=== PATIENT | male | born 1975 ===

== ENCOUNTER 2022-02-01 21:42 | Emergency (ER) | payer OTHER ==
[2022-02-01 23:37] LABS: Absolute Lymphocytes (CBC) 0.8 K/uL (0.7-4.9); Hematocrit 41.5 % (39.6-49.0); Lymphocytes % 8.2 % (15.3-44.8); MPV 9.3 fL (7.6-11.3); RBC Red Blood Cell Count 5.03 M/uL (4.33-5.43)
[2022-02-01 23:50] LABS: Albumin 4.2 g/dL (3.4-5.0); Bilirubin Total 0.5 mg/dL (0.2-1.0); Potassium 3.6 mmol/L (3.5-5.1); Protein, Total 7.5 g/dL (6.4-8.2)
[2022-02-01] MEDS ORDERED: KETOROLAC 30 MG/ML INJ ONE (23:55)
[2022-02-01] MEDS ORDERED: CEFTRIAXONE 1000 MG/VIAL ONE (23:55)
[2022-02-01] MEDS ORDERED: NA CHLORIDE 0.9% 3,000 ML ONE (23:55)
[2022-02-01] MEDS ORDERED: TAMSULOSIN 0.4 MG SR CAP ONE (23:55)
[2022-02-01] MEDS ORDERED: ONDANSETRON 4 MG/2 ML VIAL ONE (23:55)
[2022-02-01] MEDS ORDERED: MORPHINE 4 MG/ML SYR ONE (23:55)
--- NOTE | 2022-02-02 01:17 | ER ---
Nurse's Notes [facility] Name: Amrik Healy Age: 46 yrs Sex: Male : 1975 Arrival Date: 02/01/2022 Time: 21:47 Bed 16 Private MD: Diagnosis: Hydronephrosis with renal and ureteral calculous obstruction-4 mm left proximal ureter Presentation: 02/01 22:46 Chief complaint: Patient states: C/O left lower back pain, Vomiting since 8:30 pm. ll3 Coronavirus screen: Vaccine status: Patient reports receiving the 2nd dose of the covid vaccine. vomiting. Ebola Screen: No symptoms or risks identified at this time. Initial Sepsis Screen: Does the patient meet any 2 criteria? No. Patient's initial sepsis screen is negative. Does the patient have a suspected source of infection? No. Patient's initial sepsis screen is negative. Risk Assessment: Do you want to hurt yourself or someone else? Patient reports no desire to harm self or others. Onset of symptoms was February 01, 2022 at 20:30. 22:46 Method Of Arrival: Ambulatory ll3 22:46 Acuity: JIMMY 3 ll3 Triage Assessment: 22:48 General: Appears uncomfortable, Behavior is calm, cooperative. Pain: Complains of pain ll3 in left low back Pain currently is 10 out of 10 on a pain scale. Pain began 4 hours ago. Is continuous. Neuro: Level of Consciousness is awake, alert, obeys commands, Oriented to person, place, time, situation. Cardiovascular: Patient's skin is warm and dry. Respiratory: Respiratory effort is even, unlabored, Respiratory pattern is regular, symmetrical. Derm: Skin is pink, warm \T\ dry. Historical: - Allergies: 22:48 No Known Allergies; ll3 - Immunization history:: Client reports receiving the 2nd dose of the Covid vaccine. - Social history:: Smoking status: Patient denies any tobacco usage or history of. - Family history:: not pertinent. Screenin/06 01:36 Abuse screen: Denies threats or abuse. Denies injuries from another. Nutritional kd3 screening: No deficits noted. Tuberculosis screening: No symptoms or risk factors identified. Fall Risk Vital Signs: 02/01 22:46 BP 145 / 93; Pulse 84; Resp 16; Temp 97.6(TE); Pulse Ox 96% on R/A; Weight 87.54 kg ll3 (R); Height 5 ft. 9 in. (175.26 cm) (R); Pain 08/08; 02/02 01:36 BP 132 / 82; Pulse 75; Resp 17; Pulse Ox 95% on R/A; kd3 02/01 22:46 Body Mass Index 28.50 (87.54 kg, 175.26 cm) ll3 ED Course: 02/01 21:47 Patient arrived in ED. kz 22:48 Triage completed. ll3 22:48 Arm band placed on. ll3 23:02 Hernando Do MD is Attending Physician. loreta 23:17 Aby Berry RN is Primary Nurse. kd3 23:21 Inserted saline lock: 20 gauge in left antecubital area, using aseptic technique. Blood ds4 collected. 02/02 00:42 CT Stone Protocol In Process Unspecified. EDMS 01:16 Jose L Ross MD is Referral Physician. loreta 01:37 Patient has correct armband on for positive identification. Bed in low position. Call kd3 light in reach. Side rails up X2. 01:37 No provider procedures requiring assistance completed. IV discontinued, intact, kd3 bleeding controlled, No redness/swelling at site. Pressure dressing applied. Administered Medications: 00:09 Drug: morphine 4 mg Route: IVP; Site: left antecubital; kd3 01:38 Follow up: Response: No adverse reaction kd3 00:09 Drug: Flomax (tamsulosin) 0.4 mg Route: PO; kd3 01:38 Follow up: Response: No adverse reaction kd3 00:09 Drug: Rocephin (cefTRIAXone) 1 grams Route: IV; Rate: per protocol; Site: left kd3 antecubital; 01:37 Follow up: Response: No adverse reaction; IV Status: Completed infusion kd3 00:09 Drug: NS 0.9% 1000 ml Route: IV; Rate: 1 bolus; Site: left antecubital; kd3 01:37 Follow up: IV Status: Completed infusion kd3 00:10 Drug: Zofran (Ondansetron) 4 mg Route: IVP; Site: left antecubital; kd3 01:38 Follow up: Response: No adverse reaction kd3 00:10 Drug: NS 0.9% 1000 ml Route: IV; Rate: 1 bolus; Site: left antecubital; kd3 01:38 Follow up: IV Status: Completed infusion kd3 00:10 Drug: TORadol (ketorolac) 30 mg Route: IVP; Site: left antecubital; kd3 01:38 Follow up: Response: No adverse reaction kd3 01:17 Drug: NS 0.9% 1000 ml Route: IV; Rate: 1 bolus; Site: left antecubital; kd3 01:38 Follow up: IV Status: Completed infusion kd3 Outcome: 01:16 Discharge ordered by MD. kan 01:37 Discharged to home ambulatory. kd3 01:37 Condition: stable 01:37 Discharge instructions given to patient, Instructed on discharge instructions, follow up and referral plans. medication usage, Demonstrated understanding of instructions, follow-up care, medications, Prescriptions given X 4. 01:38 Patient left the ED. kd3 Signatures: Dispatcher [employer] EDHernando Hong MD MD cha Swanson, Donovan ds4 Eris Canales RN RN 3 Aby Berry RN RN kd3 Jeni Yang
--- NOTE | 2022-02-02 01:17 | EDPHYS ---
Physician Documentation [facility] Name: Amrik Healy Age: 46 yrs Sex: Male : 1975 Arrival Date: 02/01/2022 Time: 21:47 Bed 16 Private MD: ED Physician Hernando Do HPI: 02/01 23:07 This 46 yrs old Male presents to ER via Ambulatory with complaints of Low loreta Back Pain - Left side. 23:07 The patient presents with pain that is acute, with no known mechanism of injury. The loreta symptoms are located in the left low back and left mid back. Location: left low back and left mid back. The problem was sustained from unknown cause. Onset: The symptoms/episode began/occurred just prior to arrival. Modifying factors: The patient symptoms are alleviated by nothing, the patient symptoms are aggravated by nothing. Associated signs and symptoms: The patient has no apparent associated signs or symptoms. Severity of symptoms: At their worst the symptoms were mild, in the emergency department the symptoms are unchanged. The patient has not experienced similar symptoms in the past. Historical: - Allergies: 22:48 No Known Allergies; ll3 - Immunization history:: Client reports receiving the 2nd dose of the Covid vaccine. - Social history:: Smoking status: Patient denies any tobacco usage or history of. - Family history:: not pertinent. ROS: 23:07 Constitutional: Negative for fever, chills, and weight loss, Eyes: Negative for injury, loreta pain, redness, and discharge, ENT: Negative for injury, pain, and discharge, Neck: Negative for injury, pain, and swelling, Cardiovascular: Negative for chest pain, palpitations, and edema, Respiratory: Negative for shortness of breath, cough, wheezing, and pleuritic chest pain, Abdomen/GI: Negative for abdominal pain, nausea, vomiting, diarrhea, and constipation, Back: Negative for injury and pain, : Negative for injury, bleeding, discharge, and swelling, MS/Extremity: Negative for injury and deformity, Skin: Negative for injury, rash, and discoloration, Neuro: Negative for headache, weakness, numbness, tingling, and seizure, Psych: Negative for depression, anxiety, suicide ideation, homicidal ideation, and hallucinations, Allergy/Immunology: Negative for hives, rash, and allergies, Endocrine: Negative for neck swelling, polydipsia, polyuria, polyphagia, and marked weight changes, Hematologic/Lymphatic: Negative for swollen nodes, abnormal bleeding, and unusual bruising. Exam: 23:08 Constitutional: This is a well developed, well nourished patient who is awake, alert, loreta and in no acute distress. Head/Face: Normocephalic, atraumatic. Eyes: Pupils equal round and reactive to light, extra-ocular motions intact. Lids and lashes normal. Conjunctiva and sclera are non-icteric and not injected. Cornea within normal limits. Periorbital areas with no swelling, redness, or edema. ENT: Nares patent. No nasal discharge, no septal abnormalities noted. Tympanic membranes are normal and external auditory canals are clear. Oropharynx with no redness, swelling, or masses, exudates, or evidence of obstruction, uvula midline. Mucous membranes moist. Neck: Trachea midline, no thyromegaly or masses palpated, and no cervical lymphadenopathy. Supple, full range of motion without nuchal rigidity, or vertebral point tenderness. No Meningismus. Chest/axilla: Normal chest wall appearance and motion. Nontender with no deformity. No lesions are appreciated. Cardiovascular: Regular rate and rhythm with a normal S1 and S2. No gallops, murmurs, or rubs. Normal PMI, no JVD. No pulse deficits. Respiratory: Lungs have equal breath sounds bilaterally, clear to auscultation and percussion. No rales, rhonchi or wheezes noted. No increased work of breathing, no retractions or nasal flaring. Abdomen/GI: Soft, non-tender, with normal bowel sounds. No distension or tympany. No guarding or rebound. No evidence of tenderness throughout. Back: No spinal tenderness. No costovertebral tenderness. Full range of motion. Male : Normal genitalia with no discharge or lesions. Skin: Warm, dry with normal turgor. Normal color with no rashes, no lesions, and no evidence of cellulitis. MS/ Extremity: Pulses equal, no cyanosis. Neurovascular intact. Full, normal range of motion. Neuro: Awake and alert, GCS 15, oriented to person, place, time, and situation. Cranial nerves II-XII grossly intact. Motor strength 5/5 in all extremities. Sensory grossly intact. Cerebellar exam normal. Normal gait. Psych: Awake, alert, with orientation to person, place and time. Behavior, mood, and affect are within normal limits. Vital Signs: 22:46 BP 145 / 93; Pulse 84; Resp 16; Temp 97.6(TE); Pulse Ox 96% on R/A; Weight 87.54 kg ll3 (R); Height 5 ft. 9 in. (175.26 cm) (R); Pain 08/08; 02/02 01:36 BP 132 / 82; Pulse 75; Resp 17; Pulse Ox 95% on R/A; kd3 02/01 22:46 Body Mass Index 28.50 (87.54 kg, 175.26 cm) ll3 MDM: 02/01 23:02 Patient medically screened. [facility] 23:09 Differential diagnosis: sciatica, UTI. Data reviewed: vital signs, nurses notes, lab [facility] test result(s), radiologic studies, CT scan. Data interpreted: site monitor: rate is 84 beats/min, rhythm is regular, Pulse oximetry: on room air is 96 %. Counseling: I had a detailed discussion with the patient and/or guardian regarding: the historical points, exam findings, and any diagnostic results supporting the discharge/admit diagnosis, lab results, radiology results, the need for outpatient follow up, for definitive care, a family practitioner, a urologist. 02/01 23:07 Order name: CBC with Diff; Complete Time: 00:22 [facility] 02/01 23:07 Order name: CMP; Complete Time: 00:22 [facility] 02/01 23:07 Order name: Lipase; Complete Time: 00:22 [facility] 02/01 23:07 Order name: CT Stone Protocol [facility] 02/02 01:29 Order name: Urine Dipstick-Ancillary EDPR 02/01 23:07 Order name: IV Saline Lock; Complete Time: 23:20 [facility] 02/01 23:07 Order name: Labs collected and sent; Complete Time: 23:20 [facility] Administered Medications: 02/02 00:09 Drug: morphine 4 mg Route: IVP; Site: left antecubital; kd3 01:38 Follow up: Response: No adverse reaction kd3 00:09 Drug: Flomax (tamsulosin) 0.4 mg Route: PO; kd3 01:38 Follow up: Response: No adverse reaction kd3 00:09 Drug: Rocephin (cefTRIAXone) 1 grams Route: IV; Rate: per protocol; Site: left kd3 antecubital; 01:37 Follow up: Response: No adverse reaction; IV Status: Completed infusion kd3 00:09 Drug: NS 0.9% 1000 ml Route: IV; Rate: 1 bolus; Site: left antecubital; kd3 01:37 Follow up: IV Status: Completed infusion kd3 00:10 Drug: Zofran (Ondansetron) 4 mg Route: IVP; Site: left antecubital; kd3 01:38 Follow up: Response: No adverse reaction kd3 00:10 Drug: NS 0.9% 1000 ml Route: IV; Rate: 1 bolus; Site: left antecubital; kd3 01:38 Follow up: IV Status: Completed infusion kd3 00:10 Drug: TORadol (ketorolac) 30 mg Route: IVP; Site: left antecubital; kd3 01:38 Follow up: Response: No adverse reaction kd3 01:17 Drug: NS 0.9% 1000 ml Route: IV; Rate: 1 bolus; Site: left antecubital; kd3 :38 Follow up: IV Status: Completed infusion kd3 Disposition Summary: 02/02/22 01:16 Discharge Ordered Location: Home loreta Problem: new loreta Symptoms: have improved loreta Condition: Stable loreta Diagnosis - Hydronephrosis with renal and ureteral calculous obstruction - 4 mm left proximal loreta ureter Followup: loreta - With: Private Physician - When: 2 - 3 days - Reason: Recheck today's complaints, Continuance of care, Re-evaluation by your physician Followup: loreta - With: - When: 2 - 3 days - Reason: Recheck today's complaints, Continuance of care, Re-evaluation by your physician Discharge Instructions: - Discharge Summary Sheet loreta - Kidney Stones loreta - Kidney Stones, [id number] loreta - Hydronephrosis loreta Forms: - Medication Reconciliation Form loreta - Thank You Letter loreta - Antibiotic Education loreta - Prescription Opioid Use loreta Prescriptions: - Zofran 4 mg Oral Tablet - take 1 tablet by ORAL route every 12 hours As needed; 20 tablet; Refills: 0, loreta Product Selection Permitted - Flomax 0.4 mg Oral capsule - take 1 capsule by ORAL route once daily 1/2 hour following the same meal each loreta day; 20 capsule; Refills: 0, Product Selection Permitted - Cipro 500 mg Oral Tablet - take 1 tablet by ORAL route every 12 hours for 7 days; 14 tablet; Refills: 0, [facility] Product Selection Permitted - Tylenol-Codeine #3 300 mg-30 mg Oral - take 2 tablet by ORAL route every 6 hours; 24 tablet; Refills: 0, Product [facility] Selection Permitted Signatures: Dispatcher [employer] Hernando Newman MD MD cha Loubet, Lynsea, RN RN ll3 Aby Berry RN RN kd3
[2022-02-02 01:29] LABS: Urine Blood 3+ (Negative); Urine Glucose Negative (Negative); Urine Protein 2+ (Negative); Urine Specific Gravity >=1.030 (1.005-1.030); Urine pH 6.5 (5.0-7.0)
--- NOTE | 2022-02-02 12:21 | RAD REPORT ---
EXAM DESCRIPTION: CT - Stone Protocol - 02/02/2022 6:56 am CLINICAL HISTORY: FLANK PAIN COMPARISON: None Available. TECHNIQUE: CT of the abdomen and pelvis without IV contrast. Evaluation of the solid organs and vasc ulature is suboptimal due to lack of IV contrast. This exam was performed according to our department al dose-optimization program, which includes automated exposure control, adjustment of the mA and/or kV according to patient size and/or use of iterative reconstruction technique. FINDINGS: Lung Bases: Minimal dependent atelectasis. Bones: Mild endplate spondylosis. Abdomen: Liver: The liver has normal size and decreased density. Gallbladder: No calcified gallstones. Spleen, Pancreas, and Adrenal Glands: The spleen, pancreas, and adrenal glands are unremarkable. Kidneys: There is a 0.4 cm obstructing calculus in the proximal left ureter producing mild left hydro nephrosis. No right-sided hydronephrosis. Vasculature: Aortoiliac atherosclerosis. IVC is unremarkable. Stomach: The stomach and duodenum have normal course. Other: No free intraperitoneal air. No free fluid or lymphadenopathy. Small fat-containing umbili natacha hernia. Pelvis: Bladder: Urinary bladder is unremarkable. Bowel: No dilated loops of large or small bowel. Appendix: Normal appendix. Pelvis: Prostate is not enlarged. IMPRESSION: 1. There is a 0.4 cm obstructing calculus in the proximal left ureter producing mild l eft hydronephrosis. 2. Hepatic steatosis. Electronically signed by: Victor Hugo Gomez 02/02/2022 1:00 AM CDT Due to temporary technical issues with the PACS/Fluency reporting system, reports are being signed by the in house radiologist without review as a courtesy to ensure prompt reporting. The interpreting r adiologist is fully responsible for the content of the report.
[2022-02-02 16:39] VITALS: TEMP 97.6
[2022-02-02 16:42] VITALS: BP 132/82; O2SAT 95
== END 2022-02-02 01:38 | disposition home or self-care (01) ==
LOC: ER 21:42
DX: N13.2 Hydronephrosis with renal and ureteral calculous obstruction (principal)
CPT/HCPCS: 96365; 85025; 36415; 81003; 83690; 80053; 76377; 74176; 96375; 99284; J7030; J2405